=== PATIENT | male | born 2000 | race Caucasian/White ===

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

== ENCOUNTER → 2020-09-10 | Outpatient (CLI) | payer OTHER ==
[2020-09-10 14:28] LABS: African American GFR (CKD) >90 (>60 ml/min/1.73 sqM); Blood Urea Nitrogen 20 mg/dL (9-20); Non-African American GFR(CKD) >90 (>60 ml/min/1.73 sqM)
--- NOTE | 2020-09-10 15:50 | CT ---
EXAMINATION TYPE: CT abdomen pelvis w con DATE OF EXAM: 09/10/2020 COMPARISON: None HISTORY: Chronic diarrhea, abdominal cramping CT DLP: 348 mGycm Automated exposure control for dose reduction was used. CONTRAST: CT scan of the abdomen pelvis is performed with IV Contrast, patient injected with 100 mL of Isovue 3 00. FINDINGS- LUNG BASES-vague 5 mm density in the right lung with additional smaller punctate nodules too small to characterize. LIVER/GB- No gross abnormality is appreciated. PANCREAS- No gross abnormality is seen. SPLEEN- No gross abnormality is seen. ADRENALS- No gross abnormality is seen. KIDNEYS/BLADDER- no hydronephrosis nephrolithiasis or renal mass. BOWEL-mild prominence of the second portion of the duodenum. This may be transient related to be asso ciated with SMA syndrome. No active inflammatory changes seen. LYMPH NODES- No greater than 1cm abdominal or pelvic lymph nodes areappreciated. OSSEOUS STRUCTURES- No significant abnormality is seen. OTHER- small low-attenuation within the SMV most likely is related contrast and vascular mixing luisito fact. IMPRESSION- 1. A prominence of the second portion of the duodenum may be transient. Correlate clinically to exclu de SMA syndrome. 2. Density noted within the SMV most likely is related to vascular and contrast mixing rather than ti ny thrombus. Ultrasound of the abdomen with attention the SMV could be obtained for confirmation as c linically warranted. 3. subcentimeter right lower lobe pulmonary nodules likely postinflammatory. Six-month follow-up coul d be obtained to confirm stability.
== END | disposition home or self-care (01) ==
LOC: RADCTMAIN 13:24
PROVIDERS: ATTEND Family Medicine
DX: K52.9 Noninfective gastroenteritis and colitis, unspecified (principal); R10.9 Unspecified abdominal pain; R63.4 Abnormal weight loss; Z86.19 Personal history of other infectious and parasitic diseases
CPT/HCPCS: 82565; 84520; 74177; 36415; Q9967

== ENCOUNTER → 2021-01-27 | Outpatient (CLI) | payer OTHER ==
--- NOTE | 2021-01-27 16:06 | US ---
EXAMINATION TYPE: US scrotum with doppler. Grayscale and color Doppler Duplex imaging performed of eliu diaz scrotum. DATE OF EXAM: 01/27/2021 COMPARISON: NONE CLINICAL HISTORY: N50.89 swelling of left testicular. Patient stated has varicoceles left scrotal sac which enlarge and can become painful while lifting at work or upright all day at work. EXAM MEASUREMENTS: TESTICLES: Right Testicle: 3.8 x 2.1 x 2.5 cm Left Testicle: 3.7 x 2.3 x 2.2 cm EPIDIDYMIS HEAD: Right Epididymis: 0.7 x 0.6 x 1.1 cm Left Epididymis: 0.7 x 0.6 x 1.0 cm Color Flow and PW Doppler were performed to assess for testicular vascularity; good bilateral color f low and waveforms are seen. There is no evidence of testicular torsion. Right testicle: hyperechoic focus noted at periphery and inferiorly = 0.05 x 0.1 x 0.08cm. Left epididymal head cyst seen = 0.3 x 0.3 x 0.2cm. Presence of hydroceles: none Presence of varicoceles: varicoceles seen bilaterally with left more prominent/pronounced than right side. IMPRESSION: 1. Bilateral varicoceles. 2. Likely punctate calcification of the right testicle. 3. Left epididymal head cyst versus hematocele.
== END | disposition home or self-care (01) ==
LOC: RADUSWWP 15:14
PROVIDERS: ATTEND Family Medicine
DX: I86.1 Scrotal varices (principal); N50.89 Other specified disorders of the male genital organs
CPT/HCPCS: 76870; 93975